=== PATIENT | male | born 1950 | race Caucasian/White ===

== ENCOUNTER 2019-09-27 09:43 | Observation (INO) ==
[2019-09-27] MEDS ORDERED: Isovue-370 500 ML BOTTLE IVP ONE (10:19)
[2019-09-27 10:21] LABS: Hematocrit 39.8 % (37.5-50.1); Hemoglobin 13.5 g/dL (12.9-16.9); Mean Corpuscular HGB Conc 33.9 g/dL (31.6-35.5); Mean Corpuscular Hemoglobin 33.8 pg (28.0-33.3); Mean Corpuscular Volume 99.5 fL (83.0-100.0); Mean Platelet Volume 9.1 fL (9.4-12.4); Platelet Count 140 K/mcL (140-400); Red Cell Distribution Width 12.3 % (11.5-14.5); White Blood Count 5.5 K/mcL (4.3-11.1)
[2019-09-27 10:23] LABS: Prothrombin Time 11.5 Seconds (9.4-12.1)
[2019-09-27 10:37] LABS: BUN/Creatinine Ratio 11 (6-26); Blood Urea Nitrogen 11 mg/dL (8-23); Calcium 9.1 mg/dL (8.6-10.3); Carbon Dioxide 23 mEq/L (23-29); Chloride 107 mEq/L (98-107); Glucose 136 mg/dL (70-105); Osmolality,Calculated 291 (280-300); Potassium 3.7 mEq/L (3.5-5.1); Sodium 140 mEq/L (136-145); Troponin I < 0.03 ng/mL (< 0.04); eGFR For African Americans > 60 (> 60); eGFR For Non-African Americans > 60 (> 60)
[2019-09-27] MEDS ORDERED: Perflutren Lipid Microsphere 1.3 ML in 0.9 % Sodium Chloride 8.7 ML IVP PRN (12:25)
[2019-09-27] MEDS ORDERED: Aspirin Enteric Coated 325 MG Tablet PO ONE (12:27)
[2019-09-27 12:32] LABS: Alanine Aminotransferase 42 Units/L (7-52); Albumin/Globulin Ratio 1.7 (1.1-2.2); Alkaline Phosphatase 57 Units/L (34-104); Aspartate Amino Transferase 20 Units/L (13-39); Bilirubin,Direct 0.1 mg/dL (0.0-0.2); Bilirubin,Indirect 0.4 mg/dL (0.0-1.0); Bilirubin,Total 0.5 mg/dL (0.3-1.0); Globulin 2.4 g/dL (2.4-3.5); Total Protein 6.4 g/dL (6.4-8.9)
[2019-09-27] MEDS ORDERED: polyethylene glycoL 3350 17 GM POWD.PACK PO PRN (15:24)
[2019-09-27] MEDS: Budesonide/Formoterol 80/4.5 1 PUFF INH IH SCH (20:13)
[2019-09-27] MEDS: Melatonin 3 MG TABLET PO SCH (21:07)
[2019-09-27] MEDS: levETIRAcetam 250 MG TABLET PO SCH (21:07)
[2019-09-28 03:28] LABS: Hemoglobin 12.2 g/dL (12.9-16.9); Mean Corpuscular Hemoglobin 32.7 pg (28.0-33.3); Mean Corpuscular Volume 99.2 fL (83.0-100.0); Mean Platelet Volume 9.1 fL (9.4-12.4); Platelet Count 143 K/mcL (140-400); Red Blood Count 3.73 M/mcL (4.19-5.50); Red Cell Distribution Width 12.1 % (11.5-14.5); White Blood Count 5.3 K/mcL (4.3-11.1)
[2019-09-28 03:53] LABS: Alanine Aminotransferase 36 Units/L (7-52); Albumin 3.7 g/dL (3.5-5.7); Albumin/Globulin Ratio 1.5 (1.1-2.2); Alkaline Phosphatase 54 Units/L (34-104); Aspartate Amino Transferase 17 Units/L (13-39); BUN/Creatinine Ratio 10 (6-26); Bilirubin,Total 0.6 mg/dL (0.3-1.0); Blood Urea Nitrogen 9 mg/dL (8-23); Calcium 8.6 mg/dL (8.6-10.3); Carbon Dioxide 25 mEq/L (23-29); Chloride 106 mEq/L (98-107); Chol/HDL Ratio 3.6 (0-4.9); Cholesterol 171 mg/dL (< 200); Globulin 2.4 g/dL (2.4-3.5); Glucose 105 mg/dL (70-105); HDL Cholesterol 47 mg/dL (40-59); LDL Cholesterol,Calculated 105 mg/dL (< 100); Osmolality,Calculated 287 (280-300); Potassium 3.8 mEq/L (3.5-5.1); Sodium 139 mEq/L (136-145); Total Protein 6.1 g/dL (6.4-8.9); Triglycerides 95 mg/dL (< 150); eGFR For African Americans > 60 (> 60); eGFR For Non-African Americans > 60 (> 60)
[2019-09-28 06:53] LABS: Estimated Average Glucose 97 mg/dl
[2019-09-28] MEDS: Budesonide/Formoterol 80/4.5 1 PUFF INH IH SCH ×2 (07:45→19:45)
[2019-09-28] MEDS: Cholecalciferol (D-3) 1,000 UNIT (25MCG) TABLET PO SCH (10:09)
[2019-09-28] MEDS: Aspirin Enteric Coated 81 MG Tablet PO SCH (10:10)
[2019-09-28] MEDS: levETIRAcetam 250 MG TABLET PO SCH ×2 (10:10→20:10)
[2019-09-28] MEDS: ARNUITY ELLIPTA IH SCH (10:17)
[2019-09-28] MEDS: Melatonin 3 MG TABLET PO SCH (20:10)
[2019-09-29 06:04] LABS: Hematocrit 37.8 % (37.5-50.1); Hemoglobin 12.7 g/dL (12.9-16.9); Mean Corpuscular HGB Conc 33.6 g/dL (31.6-35.5); Mean Corpuscular Hemoglobin 33.2 pg (28.0-33.3); Mean Platelet Volume 9.5 fL (9.4-12.4); Platelet Count 144 K/mcL (140-400); Red Blood Count 3.82 M/mcL (4.19-5.50); White Blood Count 4.7 K/mcL (4.3-11.1)
[2019-09-29 06:22] LABS: BUN/Creatinine Ratio 7 (6-26); Blood Urea Nitrogen 6 mg/dL (8-23); Calcium 8.6 mg/dL (8.6-10.3); Carbon Dioxide 25 mEq/L (23-29); Chloride 106 mEq/L (98-107); Glucose 98 mg/dL (70-105); Osmolality,Calculated 286 (280-300); Potassium 3.6 mEq/L (3.5-5.1); Sodium 139 mEq/L (136-145); eGFR For African Americans > 60 (> 60); eGFR For Non-African Americans > 60 (> 60)
[2019-09-29] MEDS: Cholecalciferol (D-3) 1,000 UNIT (25MCG) TABLET PO SCH (07:50)
[2019-09-29] MEDS: levETIRAcetam 250 MG TABLET PO SCH ×2 (07:50→20:50)
[2019-09-29] MEDS: Aspirin Enteric Coated 81 MG Tablet PO SCH (07:51)
[2019-09-29] MEDS: Budesonide/Formoterol 80/4.5 1 PUFF INH IH SCH ×2 (08:06→19:42)
[2019-09-29] MEDS: ARNUITY ELLIPTA IH SCH (08:13)
[2019-09-29] MEDS: Melatonin 3 MG TABLET PO SCH (20:50)
[2019-09-30] MEDS: Budesonide/Formoterol 80/4.5 1 PUFF INH IH SCH (07:58)
[2019-09-30] MEDS: Aspirin Enteric Coated 81 MG Tablet PO SCH (08:01)
[2019-09-30] MEDS: levETIRAcetam 250 MG TABLET PO SCH (08:01)
[2019-09-30] MEDS: Cholecalciferol (D-3) 1,000 UNIT (25MCG) TABLET PO SCH (08:01)
[2019-09-30 15:54] VITALS: BP 155/98
== END 2019-09-30 17:58 ==
LOC: EMEROOARM 09:43 → 3BNU 09:43 → SUATTDRO 12:07 → 3BNU 13:30
PROVIDERS: ADMIT Family Medicine; ATTEND Nurse Practitioner Adult Health